=== PATIENT | female | born 1980 | race African-American/Black ===

== ENCOUNTER 2023-03-04 20:43 | Emergency (ER) | payer BC ==
[2023-03-04] MEDS ORDERED: SODIUM CHLORIDE 0.9% 500 ML INFUS.BAG IV ONE (20:55)
[2023-03-04 20:57] VITALS: BP 120/70; PULSE 117; RESP 16; BMI 23.1
[2023-03-04] MEDS ORDERED: CEFTRIAXONE 1 GM in DEXTROSE 5%-WATER - 50 ML IVPB ONE (20:57)
[2023-03-04 21:03] LABS: HCG,QUALITATIVE URINE Negative
[2023-03-04 21:16] LABS: EPITHELIAL CELLS FEW /hpf
[2023-03-04] MEDS ORDERED: cefTRIAXone SODIUM 1 GM VIAL ONE (21:18)
[2023-03-04 21:20] LABS: HEMATOCRIT 37.4 % (32.4-45.2); HEMOGLOBIN 12.3 G/dL (10.7-15.3); MCH 31.2 pg (25.7-33.7); MCHC 32.9 g/dl (32.0-36.0); MEAN CELL VOLUME 94.8 fl (80-96); PLATELET COUNT 250.3 10^3/uL (134-434); RBC 3.94 10^6/uL (3.60-5.2); RDW 13.3 % (11.6-15.6); WHITE BLOOD COUNT 7.2 10^3/uL (4.0-10.8)
[2023-03-04 21:41] LABS: ALBUMIN 4.2 g/dl (3.4-5.0); BILIRUBIN,TOTAL 0.8 mg/dl (0.2-1); BLOOD UREA NITROGEN 6.8 mg/dl (7-18); CALCIUM 8.6 mg/dl (8.5-10.1); CREATININE 0.8 mg/dl (0.6-1.3); SGOT/AST 17.2 U/L (15-37); SGPT/ALT 17.2 U/L (7-52); TOT PROT 7.1 g/dl (6.4-8.2)
[2023-03-04 22:44] VITALS: TEMP 100.8
== END 2023-03-04 22:58 | disposition home or self-care (01) ==
LOC: FER 20:43
DX: R50.9 Fever, unspecified (principal); R10.9 Unspecified abdominal pain; R00.0 Tachycardia, unspecified; N12 Tubulo-interstitial nephritis, not specified as acute or chronic; Z20.822 Contact with and (suspected) exposure to COVID-19
CPT/HCPCS: 0241U-QW; 36415; 74176-TC; 80053; 81003; 81015; 84703; 85027; 87086; 87186; 99284-25